=== PATIENT | female | born 1970 | race African-American/Black ===

== ENCOUNTER → 2018-07-04 13:15 | Outpatient (CLI) | payer OTHER, SELFPAY ==
--- NOTE | 2018-07-04 13:26 | XR_ITS ---
XR foot wt bearing RT 3V HISTORY: Right foot pain ITS.REASON: foot pain ORDERING PHYSICIAN: Bernadine Loving DPM PATIENT AGE: 48 years COMPARISON: None FINDINGS: No fracture or dislocation. No lytic or blastic change. There is normal mineralization.. There are hypertrophic changes along the dorsal and proximal aspect of the navicular with a faint lucency at this area which could be related to an old fracture or ununited ossification center. There are minimal hypertrophic changes of the distal aspect of the first metatarsal. There is borderline pes planus. 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
--- NOTE | 2018-07-04 13:26 | XR_ITS ---
XR foot wt bearing LT 3V HISTORY: ITS.REASON: foot pain ORDERING PHYSICIAN: Bernadine Loving DPM PATIENT AGE: 48 years COMPARISON: None FINDINGS: No fracture or dislocation. No lytic or blastic change. There is normal mineralization.. There are hypertrophic changes along the dorsal and proximal aspect of the navicular with a faint lucency at this area consistent with ununited ossification center. There are minimal hypertrophic changes of the distal aspect of the first metatarsal. Borderline pes planus IMPRESSION: No acute finding. Hypertrophic changes along the dorsal aspect of the navicular and the distal first metatarsal Borderline pes planus
== END ==
PROVIDERS: PCP Family Medicine; Visit Provider Podiatrist
DX: M72.2 Plantar fascial fibromatosis (principal)
CPT/HCPCS: 73630